=== PATIENT | female | born 1985 | race Caucasian/White ===

== ENCOUNTER 2016-10-11 10:09 | Emergency (ER) | payer BC ==
[~2016-10-11] VITALS: Ht 170.2 cm; Wt 71.5 kg
[~2016-10-11 10:09] MED LIST: CETI10TA; DIPH25CA6; SERT100T PO; UNK ABX; [UNRECOGNIZED DRUG - CODE]
[2016-10-11 10:23] VITALS: Ht 170.2 cm; Wt 71.5 kg
[2016-10-11] MEDS ORDERED: BACTDS PO (11:13)
--- NOTE | 2016-10-11 11:30 | ERD ---
ER Documentation Chief Complaint Date/Time DATE: 10/11/16 TIME: 11:20 Chief Complaint AP belly button region X 1 week HPI Complains of a swelling and redness in her bellybutton. This is a 31-year-old female she finished azithromycin on October 02 - October 06 for sore throat. Then she subsequently developed redness and swelling in the belly button. She has always had an outer belly button no fevers or chills. ROS All systems reviewed and are negative except as per history of present illness. Medications Home Meds Active Scripts Sulfamethoxazole-Trimethoprim* (Bactrim* DS) 800-160 Mg Tab, 1 TAB PO BID for 10 Days, TAB Prov:CANDY SNIDER DO 10/11/16 Reported Medications [Unk Abx] No Conflict Check 12/15/11 Pseudoephedrine Hcl (Sudafed) 240 Mg Tab.sr.24h 12/15/11 Diphenhydramine Hcl (Benadryl) 25 Mg Cap 12/15/11 Cetirizine Hcl (Zyrtec) 10 Mg Tab.chew 12/15/11 Sertraline Hcl* (Zoloft*) 100 Mg Tablet, 100 MG PO DAILY 12/15/11 Allergies Allergies: Coded Allergies: Penicillins (Verified Allergy, Severe, 10/11/16) PMhx/Soc Medical and Surgical Hx: pt denies Medical Hx, pt denies Surgical Hx History of Surgery: No Anesthesia Reaction: No Hx Neurological Disorder: No Hx Respiratory Disorders: No Hx Cardiac Disorders: No Hx Psychiatric Problems: Yes (DEPRESSION,ANXIETY) Hx Miscellaneous Medical Probl: No Hx Alcohol Use: No Hx Substance Use: No Hx Tobacco Use: No Smoking Status: Never smoker Physical Exam Vitals Vital Signs Date Time Temp Pulse Resp B/P Pulse Ox O2 Delivery O2 Flow Rate FiO2 10/11/16 10:23 98.1 72 18 104/58 97 Physical Exam Const: [] Head: Atraumatic Eyes: Normal Conjunctiva ENT: Normal External Ears, Nose and Mouth. Neck: Full range of motion..~ No meningismus. Resp: Clear to auscultation bilaterally Cardio: Regular rate and rhythm, no murmurs Abd: Soft, non tender, non distended. Normal bowel sounds the umbilicus is an outer umbilicus it is indurated. Erythematous and warm not fluctuant Skin: No petechiae or rashes Back: No midline or flank tenderness Ext: No cyanosis, or edema Neur: Awake and alert Psych: Normal Mood and Affect Procedures/MDM This appears to be an infection and/or abscess of the outer bellybutton. Apparently she has always had an outer bellybutton so this is less likely to be a hernia. Will treat with antibiotics, it is indurated and not fluctuant so too early to do incision and drainage. If the area becomes fluctuant and is not improving she should return for incision and drainage and further evaluation. I doubt cellulitis incarcerated or strangulated hernia. Vital signs are stable she stable for discharge and outpatient follow-up. Departure Diagnosis: Primary Impression: Abscess, umbilical Condition: Stable Patient Instructions: Abscess, Antiobiotic Treatment Only Referrals: BESSY BOO MD (PCP) CANDY SNIDER DO Oct 11, 2016 11:30
== END 2016-10-11 12:57 | disposition home or self-care (01) ==
LOC: FTE 10:09
DX: L02.216 Cutaneous abscess of umbilicus (principal)
CPT/HCPCS: 99283

== ENCOUNTER 2016-10-13 17:06 | Emergency (ER) | payer BC ==
[~2016-10-13] VITALS: Wt 71.3 kg
[~2016-10-13 17:06] MED LIST changes: +BACTDS PO
--- NOTE | 2016-10-13 18:31 | ERD ---
ER Documentation Chief Complaint Date/Time DATE: 10/13/16 TIME: 18:24 Chief Complaint dizziness and hit head on shower door. no loc no neckpain HPI The patient is a 31-year-old female here after hitting her head on the side of her shower door today at approximately 4 PM. She denies losing consciousness, however states that she felt dazed and nauseous with some slight blurred vision. She took a nap immediately afterwards, and woke up and felt somewhat better. She reports a headache, intermittent, 6/10. And some intermittent nausea. Her blurry vision has resolved. She stated that she felt dizzy after she "popped" an abscess in her bellybutton. She states that she has had vasovagal reactions previously in the past, particularly when she has had her blood drawn. She was seen here recently for her bellybutton abscess and is taking Bactrim as prescribed without any complaints or side effects. ROS All systems reviewed and are negative except as per history of present illness. Medications Home Meds Active Scripts Acetaminophen* (Tylenol*) 325 Mg Tablet, 2 TAB PO Q6 Y for PAIN AND OR ELEVATED TEMP, #20 TAB Prov:BELINDA NAIR, REVIEW ASSISTANT 10/13/16 Tramadol HCl (Tramadol HCl) 50 Mg Tablet, 50 MG PO Q6 Y for PAIN, #9 TAB Prov:BELINDA NAIR, REVIEW ASSISTANT 10/13/16 Sulfamethoxazole-Trimethoprim* (Bactrim* DS) 800-160 Mg Tab, 1 TAB PO BID for 10 Days, TAB Prov:CANDY SNIDER DO 10/11/16 Reported Medications [Unk Abx] No Conflict Check 12/15/11 Pseudoephedrine Hcl (Sudafed) 240 Mg Tab.sr.24h 12/15/11 Diphenhydramine Hcl (Benadryl) 25 Mg Cap 12/15/11 Cetirizine Hcl (Zyrtec) 10 Mg Tab.chew 12/15/11 Sertraline Hcl* (Zoloft*) 100 Mg Tablet, 100 MG PO DAILY 12/15/11 Allergies Allergies: Coded Allergies: Penicillins (Verified Allergy, Severe, 10/11/16) PMhx/Soc Medical and Surgical Hx: pt denies Medical Hx, pt denies Surgical Hx History of Surgery: No Anesthesia Reaction: No Hx Neurological Disorder: No Hx Respiratory Disorders: No Hx Cardiac Disorders: No Hx Psychiatric Problems: Yes (DEPRESSION,ANXIETY) Hx Miscellaneous Medical Probl: No Hx Alcohol Use: No Hx Substance Use: No Hx Tobacco Use: No Smoking Status: Never smoker Physical Exam Vitals Vital Signs Date Time Temp Pulse Resp B/P Pulse Ox O2 Delivery O2 Flow Rate FiO2 10/13/16 17:12 98.8 72 20 111/75 99 Physical Exam INITIAL VITAL SIGNS: Reviewed by me, afebrile, no tachycardia, oximetry 98% on room air. GENERAL: Alert. Well developed and well nourished. No acute distress. HEAD: Head is normocephalic. Atraumatic. No lacerations, abrasions, or hematoma. Head is not tender to palpation. EYES: EOMI. PERRL. No scleral icterus. No conjunctival injection. ENT: External ears, nose, and mouth normal. Nasal passages patent. Moist mucous membranes. NECK: Supple. Full range of motion. Trachea midline. No bony or myofascial tenderness to palpation. No step-off. RESPIRATORY: No tachypnea. Clear to auscultation bilaterally. No wheezing, rales , or rhonchi. CV: Regular rate and rhythm. No murmurs, rubs, or gallops ABDOMEN: Soft, non-distended, non-tender. No guarding. No rebound. No masses. Bowel sounds normal in all quadrants. + Subcentimeter round abscess noted to umbilicus, not hot to touch, no active bleeding or oozing of any kind, no surrounding erythema. BACK: No CVA tenderness. Full ROM. No bony or myofascial tenderness to palpation. No step-off. EXTREMITIES: No obvious deformity. No clubbing or cyanosis. No edema. SKIN: Warm and dry. No diaphoresis. No obvious rashes or lesions. NEUROLOGIC: Alert and oriented x 4. Appropriate. Face is symmetric. Speech is normal. Moves all extremities equally. No focal neurologic deficits. CN II-XII intact on exam. Results 24 hrs Current Medications Medications (Trade) Dose Ordered Sig/Moody Route PRN Reason Start Time Stop Time Status Last Admin Dose Admin Tramadol HCl (Ultram) 50 mg ONCE ONCE PO 10/13/16 19:00 10/13/16 19:01 DC 10/13/16 18:51 Procedures/MDM Nursing Notes Reviewed Previous Medical Records requested via [employer]. EMERGENCY DEPARTMENT COURSE / MEDICAL DECISION MAKING: The patient comes to the ED secondary to hitting her head on the shower door, headache and nausea since. Differential diagnosis upon initial evaluation includes but is not limited to: Brain bleed, concussion, neck injury, cardiovascular disease, vasovagal episode , hypoglycemia, and others The case was discussed with supervising physician Dr. Hammonds. The patient was treated with tramadol 50 mg p.o. with relief. Final impression: 1. Concussion 2. Vasovagal episode 3. Umbilical abscess Based on patient's history of present illness and physical examination the decision was made to discharge. The patient was re-evaluated after ED treatment and stabilizing measures, and symptoms have improved. There is no evidence of life threatening injuries or illnesses at this time. I have low suspicion for a brain bleed, cardiovascular disease, hypoglycemia, neck injury, or any other serious illness or injury at this time given that the patient had a benign physical exam, her history of present illness, that her syncopal episode was related to popping her abscess in the shower, she has no focal neurologic deficits, she did not lose consciousness, she did not vomit, she did not have any chest pain or palpitations, she has been eating and drinking normally and does not have diabetes, she denies any neck pain, and she is alert and oriented 4. I decided not to do an incision and drainage today given that the abscess is improving and is smaller than 1 cm. The patient is improving with antibiotic treatment. The patient was instructed to return here if the abscess gets worse , or does not completely resolve within the next few days. She verbalized understanding and agreed. On re-examination, patient resting in no distress, stable vital signs, reports feeling better and safe for discharge with outpatient follow up with PMD in 1-2 days. Patient given return precautions. She verbalized understanding and agreed to return precautions. All of her questions and concerns were addressed prior to discharge. She agrees with the plan of care. I instructed her that she could allow her abscess to continue to drain spontaneously, but to please not squeeze or try to express the pus. I also instructed her to please continue to take the Bactrim as prescribed. She verbalized understanding and agree. Prescription Tramadol Ibuprofen Departure Diagnosis: Primary Impression: Concussion Encounter type: initial encounter Loss of consciousness presence/duration: without LOC Qualified Code: S06.0X0A - Concussion, without loss of consciousness, initial encounter Additional Impression: Vaso vagal episode Condition: Stable BELINDA NAIR NP Oct 13, 2016 18:31
[2016-10-13] MEDS ORDERED: traMADol 50 MG TAB PO ONE (19:00)
[2016-10-13] MEDS ORDERED: ULT50 PO (19:02)
[2016-10-13] MEDS ORDERED: ACET325T33 PO (19:02)
== END 2016-10-13 19:20 | disposition home or self-care (01) ==
LOC: FTE 17:06
DX: S06.0X0A Concussion without loss of consciousness, initial encounter (principal); R55 Syncope and collapse; W22.8XXA Striking against or struck by other objects, initial encounter; Y92.9 Unspecified place or not applicable
CPT/HCPCS: 99283; Z7610

== ENCOUNTER 2017-06-30 18:03 | Emergency (ER) | payer BC ==
[~2017-06-30] VITALS: Ht 170.2 cm; Wt 72.5 kg
[~2017-06-30 18:03] MED LIST changes: +ACET325T33 PO; +TRAM50TA2 PO
[2017-06-30 18:07] VITALS: Ht 170.2 cm; Wt 72.5 kg
[2017-06-30] MEDS ORDERED: LIDOCAINE 2% (MDV) 20 ML INJ INJ ONE (19:00)
[2017-06-30] MEDS ORDERED: DOXY100T20 PO (19:57)
--- NOTE | 2017-06-30 20:43 | ERD ---
ER Documentation Chief Complaint Date/Time DATE: 06/30/17 TIME: 20:12 Chief Complaint BUMP LABIA MAJOR & VAGINA IRRIATION X 3 DAYS, PAINFUL/RED, DENIES DISCHARGE HPI This is a 31-year-old female that presents to the ER with a bump to her vagina that started on Sunday. Patient states that on Sunday the area became more painful and this morning she noticed that the bump got bigger. Patient denies any fevers or chills. She denies any vaginal discharge. Patient is currently sexually active however does not use condoms all the time. Denies any urinary frequency or dysuria. ROS 12 point review of systems was done, all negative except per HPI. Medications Home Meds Active Scripts Doxycycline Hyclate* (Doxycycline Hyclate*) 100 Mg Tablet.dr, 100 MG PO BID for 10 Days, TAB Prov:JEROMY ALATORRE 06/30/17 Acetaminophen* (Tylenol*) 325 Mg Tablet, 2 TAB PO Q6 Y for PAIN AND OR ELEVATED TEMP, #20 TAB Prov:BELINDA NAIR, EDIE 10/13/16 Tramadol HCl (Tramadol HCl) 50 Mg Tablet, 50 MG PO Q6 Y for PAIN, #9 TAB Prov:BELINDA NAIR, CLASSROOM INSTRUCTOR 10/13/16 Sulfamethoxazole-Trimethoprim* (Bactrim* DS) 800-160 Mg Tab, 1 TAB PO BID for 10 Days, TAB Prov:CANDY SNIDER DO 10/11/16 Reported Medications [Unk Abx] No Conflict Check 12/15/11 Pseudoephedrine Hcl (Sudafed) 240 Mg Tab.sr.24h 12/15/11 Diphenhydramine Hcl (Benadryl) 25 Mg Cap 12/15/11 Cetirizine Hcl (Zyrtec) 10 Mg Tab.chew 12/15/11 Sertraline Hcl* (Zoloft*) 100 Mg Tablet, 100 MG PO DAILY 12/15/11 Allergies Allergies: Coded Allergies: Penicillins (Verified Allergy, Severe, 10/11/16) sulfamethoxazole (Verified Allergy, Unknown, 06/30/17) trimethoprim (Verified Allergy, Unknown, 06/30/17) PMhx/Soc Medical and Surgical Hx: pt denies Surgical Hx History of Surgery: No Anesthesia Reaction: No Hx Neurological Disorder: No Hx Respiratory Disorders: No Hx Cardiac Disorders: No Hx Psychiatric Problems: Yes Hx Miscellaneous Medical Probl: No (Depression,Anxiety) Hx Alcohol Use: No Hx Substance Use: No Hx Tobacco Use: No Smoking Status: Never smoker Physical Exam Vitals Vital Signs Date Time Temp Pulse Resp B/P Pulse Ox O2 Delivery O2 Flow Rate FiO2 06/30/17 18:07 99.0 86 18 114/67 100 Physical Exam GENERAL: The patient is well developed and appropriate for usual state of health , in no apparent distress. HEENT: Atraumatic. CHEST: Clear to auscultation bilaterally. There are no rales, wheezes or rhonchi. HEART: Regular rate and rhythm. No murmurs, clicks, rubs or gallops. : Patient has a 1 cm x 2 cm small abscess to the left labia majora. It is fluctuant and painful. NEURO: Alert and oriente SKIN: There is no apparent rash or petechia. The skin is warm and dry. Results 24 hrs Current Medications Medications (Trade) Dose Ordered Sig/Moody Route PRN Reason Start Time Stop Time Status Last Admin Dose Admin Lidocaine (Xylocaine 2% (Mdv) 20 ml) 20 ml ONCE ONCE INJ 06/30/17 19:00 06/30/17 19:01 DC Procedures/MDM This is a 31-year-old female presents to the ER with an abscess. Patient is afebrile and well-appearing. Abscess Incision and Drainage with irrigation by me: Location: left labia majora Anesthesia: Local 1% Lidocaine Technique: Irrigated. Disrupted loculations w/ instrumentation Packing: None Complications: Neurovascularly intact post procedure 48 hour wound check. Scar minimization instructions given. Patient's skin symptoms have stabilized while they have been evaluated in the department and are appropriate for outpatient care and work up. Exam and w/u not consistent w/ sepsis, deep space infection, or foreign body. Departure Diagnosis: Primary Impression: Abscess, vagina Condition: Stable Patient Instructions: Abscess, Incision And Drainage Additional Instructions: Return to this facility in 2 DAYS for a follow-up exam.Return sooner if your condition worsens. JEROMY ALATORRE Jun 30, 2017 20:43
== END 2017-06-30 20:08 | disposition home or self-care (01) ==
LOC: FTE 18:03
DX: N76.4 Abscess of vulva (principal)
CPT/HCPCS: 56405; 99283; Z7610

== ENCOUNTER 2017-10-04 00:23 | Emergency (ER) | payer BC ==
[~2017-10-04] VITALS: Ht 165.1 cm; Wt 75.2 kg
[~2017-10-04 00:23] MED LIST changes: +DOXY100T20 PO
[2017-10-04 01:05] VITALS: Ht 165.1 cm; Wt 75.2 kg
[2017-10-04] MEDS ORDERED: ONDANSETRON 4 MG INJ IV STA (03:33)
[2017-10-04] MEDS ORDERED: HYDROmorphONE 1 MG/ML SYG IV STA (03:33)
[2017-10-04] MEDS ORDERED: SOD CHLORIDE 0.9% 500 ML IV STA (03:33)
--- NOTE | 2017-10-04 03:50 | ERD ---
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 +nausea, -v/d. Denies urinary symptoms HPI This is a very pleasant 32-year-old female who presents to the emergency room with epigastric and right upper quadrant abdominal pain. The patient describes symptoms on and off for approximately 1-2 weeks. Worse over the past 6 hours. She states that is associated with mild nausea. The pain is bandlike to the epigastrium but worse and radiating to the right back. She denies abdominal surgical history, no dysuria urgency or frequency. ROS All systems reviewed and are negative except as per history of present illness. Medications Home Meds Active Scripts Dicyclomine Hcl* (Bentyl*) 10 Mg Capsule, 10 MG PO QID Y for abdominal cramping , #20 CAP Prov:CASI CESPEDES MD 10/04/17 Omeprazole* (Omeprazole*) 20 Mg Capsule.dr, 20 MG PO DAILY, #30 Prov:CASI CESPEDES MD 10/04/17 Reported Medications Cyclobenzaprine Hcl* (Cyclobenzaprine Hcl*) 5 Mg Tablet, 5 MG PO DAILY for MUSCLE SPASMS, #90 TAB 10/04/17 Tramadol Hcl* (Ultram*) 50 Mg Tablet, 50 MG PO Q8, TAB 10/04/17 Ibuprofen* (Ibuprofen*) 800 Mg Tablet, 800 MG PO Q6H Y for PAIN LEVEL 6-10, TAB 10/04/17 Discontinued Reported Medications [Unk Abx] No Conflict Check 12/15/11 Pseudoephedrine Hcl (Sudafed) 240 Mg Tab.sr.24h 12/15/11 Diphenhydramine Hcl (Benadryl) 25 Mg Cap 12/15/11 Cetirizine Hcl (Zyrtec) 10 Mg Tab.chew 12/15/11 Sertraline Hcl* (Zoloft*) 100 Mg Tablet, 100 MG PO DAILY 12/15/11 Discontinued Scripts Doxycycline Hyclate* (Doxycycline Hyclate*) 100 Mg Tablet.dr, 100 MG PO BID for 10 Days, TAB Prov:JEROMY ALATORRE 06/30/17 Acetaminophen* (Tylenol*) 325 Mg Tablet, 2 TAB PO Q6 Y for PAIN AND OR ELEVATED TEMP, #20 TAB Prov:BELINDA NAIR, TRANSPORTATION WORKER 10/13/16 Tramadol HCl (Tramadol HCl) 50 Mg Tablet, 50 MG PO Q6 Y for PAIN, #9 TAB Prov:BELINDA NAIR, TRANSPORTATION WORKER 10/13/16 Sulfamethoxazole-Trimethoprim* (Bactrim* DS) 800-160 Mg Tab, 1 TAB PO BID for 10 Days, TAB Prov:CANDY SNIDER DO 10/11/16 Allergies Allergies: Coded Allergies: Penicillins (Verified Allergy, Severe, 10/04/17) sulfamethoxazole (Verified Allergy, Unknown, 10/04/17) trimethoprim (Verified Allergy, Unknown, 10/04/17) PMhx/Soc History of Surgery: No Anesthesia Reaction: No Hx Neurological Disorder: No Hx Respiratory Disorders: No Hx Cardiac Disorders: No Hx Psychiatric Problems: Yes Hx Miscellaneous Medical Probl: No (Depression,Anxiety) Hx Alcohol Use: No Hx Substance Use: No Hx Tobacco Use: No FmHx Family History: No diabetes Physical Exam Vitals Vital Signs Date Time Temp Pulse Resp B/P Pulse Ox O2 Delivery O2 Flow Rate FiO2 10/04/17 05:07 99.8 89 12 108/66 100 Room Air 10/04/17 01:05 100.5 111 18 110/62 98 Physical Exam General: Well developed, well nourished, no acute distress Head: Normocephalic, atraumatic. Eyes: Pupils equally reactive, EOM intact ENT: Moist mucous membranes Neck: Supple, no lymphadenopathy Respiratory: Lungs clear bilaterally, no distress Cardiovascular: RRR, no murmurs, rubs, or gallops Abdominal: Soft, mild tenderness to the epigastrium and right upper quadrant, no tenderness to McBurney's point, no peritonitis : Deferred MSK: No edema, no unilateral swelling, 5/5 strength Neurologic: Alert and oriented, moving all extremities, normal speech, no focal weakness, no cerebellar signs Skin: No rash Psych: Normal mood Result Diagram: 10/04/1740410/04/17404 Results 24 hrs Laboratory Tests Test 10/04/17 03:50 10/04/17 04:05 Urine Color YELLOW Urine Clarity CLOUDY Urine pH 5.0 Urine Specific [place] 1.018 Urine Ketones NEGATIVEmg/dL Urine Nitrite NEGATIVEmg/dL Urine Bilirubin NEGATIVEmg/dL Urine Urobilinogen NEGATIVEmg/dL Urine Leukocyte Esterase TRACELeu/ul Urine Microscopic RBC 5/HPF Urine Microscopic WBC 12/HPF Urine Squamous Epithelial Cells MODERATE/HPF Urine Bacteria MODERATE/HPF Urine Mucus FEW/HPF Urine Hemoglobin 2+mg/dL Urine Glucose NEGATIVEmg/dL Urine Total Protein NEGATIVEmg/dl White Blood Count 6.410^3/ul Red Blood Count 4.1310^6/ul Hemoglobin 12.9g/dl Hematocrit 38.1% Mean Corpuscular Volume 92.3fl Mean Corpuscular Hemoglobin 31.2pg Mean Corpuscular Hemoglobin Concent 33.9g/dl Red Cell Distribution Width 13.0% Platelet Count 65454^3/UL Mean Platelet Volume 11.5fl Neutrophils % 87.4% Lymphocytes % 6.6% Monocytes % 5.8% Eosinophils % 0.0% Basophils % 0.0% Nucleated Red Blood Cells % 0.0/100WBC Neutrophils # 5.610^3/ul Lymphocytes # 0.410^3/ul Monocytes # 0.410^3/ul Eosinophils # 0.010^3/ul Basophils # 0.010^3/ul Nucleated Red Blood Cells # 0.010^3/ul Bedside Urine pH (LAB) 5.5 Bedside Urine Protein (LAB) Negative Bedside Urine Glucose (UA) Negative Bedside Urine Ketones (LAB) Negative Bedside Urine Blood 1+ Bedside Urine Nitrite (LAB) Negative Bedside Urine Leukocyte Esterase (L Trace Sodium Level 142mmol/L Potassium Level 3.8mmol/L Chloride Level 104mmol/L Carbon Dioxide Level 26mmol/L Anion Gap 16 Blood Urea Nitrogen 11mg/dl Creatinine 0.71mg/dl Glucose Level 121mg/dl Calcium Level 9.4mg/dl Total Bilirubin 0.3mg/dl Direct Bilirubin 0.00mg/dl Indirect Bilirubin 0.3mg/dl Aspartate Amino Transf (AST/SGOT) 55IU/L Alanine Aminotransferase (ALT/SGPT) 98IU/L Alkaline Phosphatase 86IU/L Total Protein 7.9g/dl Albumin 4.7g/dl Globulin 3.20g/dl Albumin/Globulin Ratio 1.46 Lipase 28U/L Serum HCG, Qualitative NEGATIVE Current Medications Medications (Trade) Dose Ordered Sig/Moody Route PRN Reason Start Time Stop Time Status Last Admin Dose Admin Sodium Chloride (NS) 500 ml @ 500 mls/hr Q1H STAT IV 10/04/17 03:33 10/04/17 04:32 DC 10/04/17 04:01 Hydromorphone HCl (Dilaudid) 1 mg ONCE STAT IV 10/04/17 03:33 10/04/17 03:34 DC 10/04/17 04:01 Ondansetron HCl (Zofran Inj) 4 mg ONCE STAT IV 10/04/17 03:33 10/04/17 03:34 DC 10/04/17 04:00 Ketorolac Tromethamine (Toradol) 30 mg ONCE STAT IV 10/04/17 04:54 10/04/17 04:55 DC 10/04/17 05:03 Procedures/MDM LAB INTERPRETATION: No leukocytosis, very subtle transaminitis but no evidence of hepatobiliary obstruction, negative hCG MEDICAL DECISION MAKING: The patient presents with epigastric and right upper quadrant abdominal pain. Strong concern for hepatobiliary process such as choledocholithiasis or acute cholecystitis. Consider biliary colic. Low clinical concern for bowel obstruction, dissection, acute appendicitis. No evidence of acute ovarian process such as cyst or torsion. The patient will benefit from gallbladder ultrasound and likely inpatient hospitalization if abnormality exists. ER COURSE: Patient had improved pain after pain medication but did have recurrence responsive to Toradol. The patient's laboratory testing shows very nonspecific and only slight transaminitis but no evidence of hepatobiliary obstruction. Her gallbladder ultrasound is also normal. On repeat exam the patient has a benign abdominal examination. This makes her abdominal pain more likely secondary to gastritis versus peptic ulcer disease. Outpatient GI follow-up and likely endoscopy would be reasonable. A trial of PPI would also be appropriate. We did discuss return precautions including worsening pain, vomiting, fevers. The patient verbalized understanding. I kept the patient and/or family informed of laboratory and diagnostic imaging results throughout the emergency room course. DISPOSITION PLAN: We discussed follow up with the patient's primary care doctor within 24 to 48 hours as needed. We also discussed return to the emergency room for worsening symptoms or worsening condition. Outpatient referral: Gastroenterology Discharge Medications: Prilosec, Bentyl Departure Diagnosis: Primary Impression: Epigastric abdominal pain Condition: Stable CASI CESPEDES MD Oct 04, 2017 03:50
[2017-10-04 04:05] LABS: URINE BLOOD (Dip) POC 1+ (NEGATIVE)
[2017-10-04 04:19] LABS: ABNORMAL IP MESSAGE 1; HEMATOCRIT 38.1 % (37.0-47.0); HEMOGLOBIN 12.9 g/dl (12.0-16.0); LYMPHOCYTES # 0.4 10^3/ul (0.8-2.9); LYMPHOCYTES % 6.6 % (15.0-51.0); MEAN CORPUSCULAR HEMOGLOBIN 31.2 pg (29.0-33.0); MEAN CORPUSCULAR HGB CONC 33.9 g/dl (32.0-37.0); MEAN CORPUSCULAR VOLUME 92.3 fl (82.0-101.0); MEAN PLATELET VOLUME 11.5 fl (7.4-10.4); MONOCYTE # 0.4 10^3/ul (0.3-0.9); MONOCYTES % 5.8 % (0.0-11.0); NEUTROPHIL # 5.6 10^3/ul (1.6-7.5); NEUTROPHILS % 87.4 % (39.0-77.0); PLATELET COUNT 179 10^3/UL (140-415); RED BLOOD COUNT 4.13 10^6/ul (4.20-5.40); WHITE BLOOD COUNT 6.4 10^3/ul (4.8-10.8)
[2017-10-04 04:23] LABS: POSITIVE DIFF @See below
[2017-10-04 04:34] LABS: ADD UMIC YES; UR ASCORBIC ACID NEGATIVE (NEGATIVE); UR BACTERIA MODERATE /HPF (NONE SEEN); UR BILIRUBIN (Dip) NEGATIVE (NEGATIVE); UR BLOOD (Dip) 2+ mg/dL (NEGATIVE); UR CLARITY CLOUDY (CLEAR); UR COLOR YELLOW (YELLOW); UR GLUCOSE (Dip) NEGATIVE (NEGATIVE); UR KETONES (Dip) NEGATIVE (NEGATIVE); UR LEUKOCYTE ESTERASE (Dip) TRACE Leu/ul (NEGATIVE); UR MUCUS FEW /HPF (NONE SEEN); UR NITRITE (Dip) NEGATIVE (NEGATIVE); UR RBC 5 /HPF (0-5); UR SPECIFIC GRAVITY (Dip) 1.018 (1.003-1.030); UR SQUAMOUS EPITHELIAL CELL MODERATE /HPF (FEW); UR TOTAL PROTEIN (Dip) NEGATIVE (NEGATIVE); UR UROBILINOGEN (Dip) NEGATIVE (NEGATIVE)
[2017-10-04 04:38] LABS: ALBUMIN 4.7 g/dl (3.3-4.9); ALBUMIN/GLOBULIN RATIO 1.46; BILIRUBIN,INDIRECT 0.3 mg/dl (0-1.1); BILIRUBIN,TOTAL 0.3 mg/dl (0.2-1.3); CALCIUM 9.4 mg/dl (8.4-10.2); CREATININE 0.71 mg/dl (0.44-1.00); POTASSIUM 3.8 mmol/L (3.5-5.1); TOTAL PROTEIN 7.9 g/dl (6.1-8.1)
[2017-10-04] MEDS ORDERED: KETOROLAC 30 MG INJ IV STA (04:54)
[2017-10-04] MEDS ORDERED: CYCL5TAB PO (05:24)
[2017-10-04] MEDS ORDERED: TRAM-40 PO (05:24)
[2017-10-04] MEDS ORDERED: IBUP800T25 PO (05:24)
--- NOTE | 2017-10-04 05:31 | RADRPT ---
PROCEDURE: US Abdomen. CLINICAL INDICATION: Abdominal pain TECHNIQUE: Multiple real-time images were acquired of the patient's abdomen and retroperitoneum ut ilizing a high resolution transducer. COMPARISON: None FINDINGS: Those portions of the pancreas visualized are unremarkable. No evidence of cholelithiasis gallbladde r wall thickening or pericholecystic fluid. Common bile duct is normal limits in size measuring 3.13 mm. No evidence of intrahepatic biliary ductal dilation. Liver is normal size measuring 14.04 cm. L iver parenchymal echogenicity is normal without focal hepatic lesions. Right kidney is normal in siz e with a maximal sagittal mention of 10.77 cm. Right renal parenchymal echogenicity is normal withou t hydronephrosis or intra renal mass. No right renal calculi. No free fluid in the right upper quadr ant knee. IMPRESSION: 1. No evidence cholelithiasis or biliary ductal dilation. 2. 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 RPTAT: [facility] Physician Esperanza Date Time Electronically viewed and signed by Physician Esperanza on 10/04/2017 05:31 /
[2017-10-04] MEDS ORDERED: DICY10CA60 PO (05:36)
[2017-10-04] MEDS ORDERED: OMEP20CA16 PO (05:36)
[2017-10-04 05:48] VITALS: BP 108/66; PULSE 71; RESP 16; TEMP 98
== END 2017-10-04 05:50 | disposition home or self-care (01) ==
LOC: E/R 00:23
DX: R10.13 Epigastric pain (principal); R11.0 Nausea
CPT/HCPCS: 36415; 76705; 80053; 81001; 83690; 84703; 85025; 96374; 96375; J1170; J1885; J2405; J7040; Z7502; 81003

== ENCOUNTER 2018-03-17 14:51 | Emergency (ER) | END 2018-03-17 19:38 | disposition home or self-care (01) ==

== ENCOUNTER 2018-08-20 12:09 | Day surgery (SDC) | END 2018-08-20 15:25 | disposition home or self-care (01) ==

== ENCOUNTER 2019-06-08 23:56 | Outpatient (CLI) | payer BC ==
[~2019-06-08] VITALS: Ht 167.6 cm; Wt 81.2 kg
[~2019-06-08 23:56] MED LIST changes: -ACET325T33 PO; -BACTDS PO; +CEPH-443 PO; -CETI10TA; +CHOL200073 PO; -DIPH25CA6; -DOXY100T20 PO; +HC30CR25 TOP; +IBUP-1542 PO; +IBUP-1544 PO; +LORA10TA3 PO; +PREN-93 PO; -SERT100T PO; -TRAM50TA2 PO; -UNK ABX; -[UNRECOGNIZED DRUG - CODE]
[2019-06-09 00:25] VITALS: BP 100/57; PULSE 75; RESP 18
== END 2019-06-09 02:07 | disposition home or self-care (01) ==
LOC: L-D 23:56 → OBT 23:56 → L-D 06-09 00:05 → OBT 06-09 02:07
PROVIDERS: ATTEND Obstetrics & Gynecology
DX: O26.892 Other specified pregnancy related conditions, second trimester (principal); Z3A.22 22 weeks gestation of pregnancy; R10.2 Pelvic and perineal pain
CPT/HCPCS: 76815; 76817; 81003; Z7500; G0463

== ENCOUNTER 2019-06-09 02:12 | Emergency (ER) | payer BC ==
[~2019-06-09] VITALS: Ht 167.6 cm; Wt 80.8 kg
[2019-06-09 02:18] VITALS: BP 92/57; PULSE 76; RESP 16; Ht 167.6 cm; Wt 80.8 kg
== END 2019-06-09 03:10 | disposition home or self-care (01) ==
LOC: FTE 02:12
DX: O9A.212 Injury, poisoning and certain other consequences of external causes complicating pregnancy, second trimester (principal); S80.862A Insect bite (nonvenomous), left lower leg, initial encounter; O99.712 Diseases of the skin and subcutaneous tissue complicating pregnancy, second trimester; L03.116 Cellulitis of left lower limb; W57.XXXA Bitten or stung by nonvenomous insect and other nonvenomous arthropods, initial encounter; Y92.9 Unspecified place or not applicable; Z3A.22 22 weeks gestation of pregnancy
CPT/HCPCS: 99283